=== PATIENT | female | born 1995 | race Hispanic/Latino ===

== ENCOUNTER 2022-01-03 18:43 | Emergency (ER) | payer BC, OTHER ==
[~2022-01-03] VITALS: Ht 160 cm; Wt 76.2 kg
[2022-01-03] MEDS ORDERED: IBUPROFEN600 MG PO (21:08)
[2022-01-03] MEDS ORDERED: CYCLOBENZAPRINE10 MG PO (21:10)
== END 2022-01-03 21:39 | disposition home or self-care (01) ==
LOC: FSED 19:42
DX: S16.1XXA Strain of muscle, fascia and tendon at neck level, initial encounter (principal); S60.221A Contusion of right hand, initial encounter; S80.02XA Contusion of left knee, initial encounter; S80.01XA Contusion of right knee, initial encounter; R51.9 Headache, unspecified; R11.2 Nausea with vomiting, unspecified; V53.5XXA Driver of pick-up truck or van injured in collision with car, pick-up truck or van in traffic accident, initial encounter; Y92.488 Other paved roadways as the place of occurrence of the external cause
CPT/HCPCS: 99282

== ENCOUNTER 2022-08-18 12:40 | Emergency (ER) | payer BC ==
[~2022-08-18] VITALS: Ht 162.6 cm; Wt 78.9 kg
[~2022-08-18 12:40] MED LIST: CYCLOBENZAPRINE10 MG PO; IBUPROFEN600 MG PO
[2022-08-18] MEDS ORDERED: FLONASE ALLERG9.9 ML INH (14:38)
== END 2022-08-18 14:54 | disposition home or self-care (01) ==
LOC: FSED 13:45
DX: R05.9 Cough, unspecified (principal); J06.9 Acute upper respiratory infection, unspecified; R53.83 Other fatigue
CPT/HCPCS: 83518; 87400; 99283